=== PATIENT | female | born 1940 | race Caucasian/White ===

== ENCOUNTER → 2018-03-11 | Outpatient (CLI) | payer OTHER | END | disposition home or self-care (01) | LOC: RD 12:00 | DX: S42.301A Unspecified fracture of shaft of humerus, right arm, initial encounter for closed fracture (principal); X58.XXXA Exposure to other specified factors, initial encounter; Y92.9 Unspecified place or not applicable ==

== ENCOUNTER → 2018-04-02 | Outpatient (CLI) | payer OTHER, MEDICARE ==
[2018-04-02 09:37] LABS: microscopic required? NO
[2018-04-02 10:00] LABS: BASOPHIL % 0.3 % (0-2); PLATELET COUNT 238 x10^3mcL (130-400)
[2018-04-02 10:02] LABS: RED CELL DISTRIBUTION WIDTH 16.1 % (11.5-14.5)
[2018-04-02 10:36] LABS: T4(THYROXINE) 6.9 ug/dL (4.7-13.3)
[2018-04-02 10:37] LABS: ALBUMIN 3.4 g/dL (3.4-5.0); ALKALINE PHOSPHATASE 130 U/L (46-116); ALT/SGPT 18 U/L (14-59); AST/SGOT 18 U/L (15-37); BILIRUBIN TOTAL 0.4 mg/dL (0.20-1.00); CALCIUM 9.3 mg/dL (8.5-10.1); CARBON DIOXIDE 29.7 mmol/L (21-32); CHLORIDE SERUM 106 mmol/L (98-107); CREATININE SERUM 0.9 mg/dL (0.6-1.0); GLUCOSE SERUM 93 mg/dL (74-106); PHOSPHOROUS 4.1 mg/dL (2.5-4.9); SODIUM SERUM 141 mmol/L (136-145); TOTAL PROTEIN, SERUM 7.3 g/dL (6.4-8.2); TRIGLYCERIDES 56 mg/dL (<150); URIC ACID 3.9 mg/dL (2.6-6.0)
[2018-04-02 10:39] LABS: CHOLESTEROL 204 mg/dL (<200); HDL CHOLESTEROL 100 mg/dL (40-60)
[2018-04-02 11:04] LABS: T3 TOTAL 1.15 ng/mL
[2018-04-02 11:08] LABS: UA SPECIFIC GRAVITY 1.015 (1.005-1.035); urine erythrocyte NEGATIVE (NEGATIVE)
[2018-04-02 11:16] LABS: TOTAL IRON BINDING CAPACITY 334 ug/dL (250-450)
[2018-04-02 11:18] LABS: IRON 71 ug/dL (50-170)
== END | disposition home or self-care (01) ==
LOC: LB 09:07
DX: I10 Essential (primary) hypertension (principal); E78.9 Disorder of lipoprotein metabolism, unspecified; E55.9 Vitamin D deficiency, unspecified; D64.9 Anemia, unspecified; E03.9 Hypothyroidism, unspecified; E11.9 Type 2 diabetes mellitus without complications; E83.30 Disorder of phosphorus metabolism, unspecified; R73.9 Hyperglycemia, unspecified; Z13.21 Encounter for screening for nutritional disorder; Z85.850 Personal history of malignant neoplasm of thyroid
CPT/HCPCS: 84439

== ENCOUNTER → 2019-12-06 | Outpatient (CLI) | payer OTHER, MEDICARE ==
[2019-12-06 09:37] LABS: BASOPHIL % 0.3 % (0-2); PLATELET COUNT 224 x10^3mcL (130-400)
[2019-12-06 09:41] LABS: RED CELL DISTRIBUTION WIDTH 15.9 % (11.5-14.5)
[2019-12-06 09:49] LABS: CALCIUM 8.5 mg/dL (8.5-10.1); CHLORIDE SERUM 106 mmol/L (98-107); GLUCOSE SERUM 95 mg/dL (74-106); POTASSIUM SERUM 4.1 mmol/L (3.5-5.1); SODIUM SERUM 140 mmol/L (136-145)
[2019-12-06 09:54] LABS: ALBUMIN 3.3 g/dL (3.4-5.0); ALKALINE PHOSPHATASE 101 U/L (46-116); ALT/SGPT 24 U/L (14-59); AST/SGOT 28 U/L (15-37); BILIRUBIN DIRECT 0.13 mg/dL (0.0-0.2); BILIRUBIN TOTAL 0.3 mg/dL (0.20-1.00); TOTAL PROTEIN, SERUM 6.8 g/dL (6.4-8.2)
[2019-12-06 09:58] LABS: IRON 35 ug/dL (50-170); TOTAL IRON BINDING CAPACITY 313 ug/dL (250-450)
[2019-12-06 10:00] LABS: FREE T4 1.19 ng/dL (0.76-1.46); FREE THYROXINE INDEX 2.9 ug/dL (1.4-4.5); T4(THYROXINE) 9.2 ug/dL (4.7-13.3)
[2019-12-06 10:01] LABS: T3 TOTAL 1.07 ng/mL
== END | disposition home or self-care (01) ==
LOC: LB 08:47
DX: E55.9 Vitamin D deficiency, unspecified (principal); R09.89 Other specified symptoms and signs involving the circulatory and respiratory systems; D50.9 Iron deficiency anemia, unspecified; E04.1 Nontoxic single thyroid nodule
CPT/HCPCS: 82306; 84439

== ENCOUNTER → 2020-06-05 | Outpatient (CLI) | payer OTHER, MEDICARE ==
[~2020-06-05] MED LIST: LOPRESSOR50 M1 PO; XARELTO20 M1 PO
== END ==
LOC: LB 12:41
PROVIDERS: ATTEND Internal Medicine Gastroenterology
DX: K25.9 Gastric ulcer, unspecified as acute or chronic, without hemorrhage or perforation (principal)
CPT/HCPCS: 87338

== ENCOUNTER 2020-07-09 07:20 | Day surgery (SDC) | payer OTHER, MEDICARE ==
[~2020-07-09] VITALS: Ht 170.2 cm; Wt 67.1 kg
[2020-07-09 08:11] VITALS: BP 154/97
[2020-07-09 12:36] VITALS: BP 138/85
== END 2020-07-09 10:45 | disposition home or self-care (01) ==
LOC: GI 07:20
PROVIDERS: ATTEND Internal Medicine Gastroenterology
DX: R10.13 Epigastric pain (principal); K29.50 Unspecified chronic gastritis without bleeding; K44.9 Diaphragmatic hernia without obstruction or gangrene; K25.9 Gastric ulcer, unspecified as acute or chronic, without hemorrhage or perforation
CPT/HCPCS: 43235